=== PATIENT | male | born 1995 | race Caucasian/White ===

== ENCOUNTER 2020-09-17 12:43 | Emergency (ER) | payer MEDICAID, SELFPAY ==
[2020-09-17 13:05] VITALS: BP 123/85; PULSE 85; RESP 21; TEMP 36.9; O2SAT 98; BMI 23.2
--- NOTE | 2020-09-17 13:16 | HMH.EDUTC ---
[facility] [place] Disposition Clinical Impression: Bronchitis Pharyngitis Qualifiers: Pharyngitis/tonsillitis etiology: unspecified etiology Qualified Code(s): J02.9 - Acute pharyngitis, unspecified Disposition: Home, Self-Care Condition on Discharge: Good Instructions: Sore Throat, DI for Pharyngitis/Tonsillopharyngitis -- Adult, Preventing the Spread of Coronavirus Discharge Instructions Additional Instructions: Drink plenty of fluids. Take tylenol for pain or fever. Take the medications as directed. Follow up with your regular doctor. GO TO THE ER FOR ANY WORSENING SYMPTOMS Prescriptions: Brompheniramine/Pseudoephed/Dm [Bromfed Dm Cough Syrup] 5 ml PO Q6HP PRN #240 syrup PRN Reason: Cough Transmission Status: Received by [facility] #[id number] Azithromycin [Z-Dg 250mg Tab*] 250 mg PO UD DOSE PK #6 tab Transmission Status: Received by [facility] #[id number] Referrals: Aliza Chong PA [Primary Care Provider] - Time of Disposition: 13:24 Medical Decision Making - Medical Records Medical records reviewed: No: I reviewed the patient's medical records. - Oscar Inquiry Pt receiving controlled substance: No Vital Signs: 09/17/20 13:05 09/17/20 13:32 Temperature 98.4 F 98.4 F Temperature Source Oral Oral Pulse Rate 85 Pulse Rate [Radial] 85 Respiratory Rate 21 21 Blood Pressure 123/85 Blood Pressure [Right Arm] 123/85 Blood Pressure Mean [Right Arm] 97 Blood Pressure Source Automatic Cuff Blood Pressure Source [Right Arm] Automatic Cuff Blood Pressure Position Sitting Blood Pressure Position [Right Arm] Sitting 02 Sat by Pulse Oximetry 98 Oxygen Delivery Method Room Air Room Air - Lab Data Lab results reviewed: Yes: I reviewed the patient's lab results. Lab Results 09/17/20 12:57: Strep Scn Rapid Clinic Negative Orders (Tests/Meds): ORDERS Category Date Time Status Covid-19 Nasal PCR Sendout [facility] Stat Lab 09/17/20 13:18 Received Strep Screen Confirmation Stat Micro 09/17/20 12:57 Received [facility] [place] HPI - General Stated complaint: cough Time Seen by Provider: 09/17/20 13:16 Mode of Arrival: Ambulatory Source of Information: Patient Limitations: No Limitations Description of Symptoms (Recalled from Triage Doc. by RN): cough sore throat x 2 days HEENT Symptoms (Recalled from RN notes): Yes Resp Symptoms (Recalled from RN notes): No Skin Symptoms (Recalled from RN notes): No MS Symptoms (Recalled from RN notes): No Functional Status (Recalled from RN notes): wnl - History of Present Illness Provider Complaint: He states that for the past 2 days he has had a cough, nasal congestion, and feeling bad. He denies fever or chills. He denies any known exposure to covid. - Related Data Previous Rx's Medication Instructions Recorded Azithromycin [Z-Dg 250mg Tab*] 250 mg PO UD DOSE PK #6 tab 10/08/19 Brompheniramine/Pseudoephed/Dm 5 ml PO Q6HP PRN #240 syrup 10/08/19 [Bromfed Dm Cough Syrup] Ondansetron [Zofran 4mg ODT] 4 mg PO Q8HP PRN #20 tab.rapdis 10/08/19 predniSONE [Deltasone 10mg tablet] 10 mg PO BID 3 Days #6 tab 10/08/19 Azithromycin [Z-Dg 250mg Tab*] 250 mg PO UD DOSE PK #6 tab 09/17/20 Brompheniramine/Pseudoephed/Dm 5 ml PO Q6HP PRN #240 syrup 09/17/20 [Bromfed Dm Cough Syrup] Allergies Allergy/AdvReac Type Severity Reaction Status Date / Time No Known Allergies Allergy Verified 10/08/19 10:29 - Worker's Comp Is this a Worker's Comp case?: No [facility] History - Hepatitis A Screen Drug use history?: No High risk sexual behaviors?: No History of sexually transmitted infection?: No Currently employed?: No Childcare worker?: No Do you have indoor plumbing?: Yes Do you have electricity?: Yes Attestation statement:: This patient has been screened for Hepatitis A risk factors. I have reviewed the patient's past medical history: Yes - Social History Smoking Status: Current every day smoker Tobacco Type: cigarettes # Pa
[2020-09-17 13:19] LABS: UTC Strep Screen (Rapid) Negative (Negative)
[2020-09-17 13:32] VITALS: BP 123/85; PULSE 85; RESP 21; TEMP 36.9; O2SAT 98
[2020-09-18 17:29] LABS: Covid-19 Nasal PCR Sendout Lex Not Detected
== END 2020-09-17 13:33 | disposition home or self-care (01) ==
PROVIDERS: Emergency Provider Nurse Practitioner Family; PCP Nurse Practitioner Family
DX: J40 Bronchitis, not specified as acute or chronic (principal)
CPT/HCPCS: 87880; 99202; U0004

== ENCOUNTER 2023-02-19 13:05 | Emergency (ER) | payer MEDICAID, SELFPAY ==
[2023-02-19 13:10] VITALS: BP 138/79; PULSE 107; RESP 22; TEMP 36.8; O2SAT 99; BMI 19.1
[2023-02-19 13:31] VITALS: BP 138/79; PULSE 107; RESP 22; TEMP 36.8; O2SAT 99
[2023-02-19 13:31] LABS: UTC Influenza A Antigen Positive (Negative); UTC Influenza B Antigen Negative (Negative)
--- NOTE | 2023-02-19 13:50 | EXP.UTC ---
Discharge Plan Disposition Patient Disposition: Home, Self-Care Condition: Good Prescriptions Prescriptions: New oseltamivir [Tamiflu] 75 mg capsule 75 mg PO Q12H 5 Days Qty: 10 0RF Referrals Follow up/Referrals: Provider,Referral, MD [Primary Care Provider] - See instructions Clinical Impressions Clinical Impression: Influenza A Stand Alone Forms Stand Alone Forms: Work/School Release Instructions Patient Instructions: DI for Influenza -- Adult Discharge ED Provider: Ryanne Caballero [facility] General Stated complaint: Bodyaches,cough,fever Mode of Arrival: Ambulatory Source of Information: Patient Limitations: No Limitations Time Seen by Provider: 02/19/23 13:22 Description of Symptoms (Recalled from Triage Doc. by RN): PATIENT C/O RUNNY NOSE, COUGH, HEADACHE, FEVER, FATIGUE AND BODY ACHES X 2 DAYS. RECENTLY EXPOSED TO FLU HEENT Symptoms (Recalled from RN notes): Yes Resp Symptoms (Recalled from RN notes): Yes Skin Symptoms (Recalled from RN notes): No MS Symptoms (Recalled from RN notes): No Functional Status (Recalled from RN notes): WNL History of Present Illness Provider Complaint: Pt reports that he spent the night at his brother's home and his niece had flu and strep. He states that for the past 2 days he has had body aches, cough, sore throat, runny nose, and fever. He has taken Tylenol for his symptoms. Related Data Previous Rx's Medication Instructions Recorded oseltamivir 75 mg capsule (Tamiflu) 75 mg PO Q12H 5 days #10 caps 02/19/23 Allergies Allergy/AdvReac Type Severity Reaction Status Date / Time No Known Allergies Allergy Verified 10/08/19 10:29 Worker's Comp Is this a Worker's Comp case?: No [facility] Disclaimer: The information contained in this section may have been updated after the patient was seen, as this information can be updated by other users. Social History Smoking Status: Current every day smoker tobacco type: cigarettes packs per day: 1 second hand exposure: Yes alcohol intake: never current occupational status: employed Travel in the last 8 weeks: None ROS Obtained: Yes All systems reviewed & no additional complaints except as documented Constitutional Constitutional: Reports system reviewed and no additional complaints, except as documented, Reports body ache, Reports fever(s), Reports headache(s) and Reports malaise Eyes Eyes: Reports system reviewed and no additional complaints, except as documented ENT Ears, Nose, Mouth, and Throat: Reports system reviewed and no additional complaints, except as documented, Reports headache(s), Reports nasal congestion, Reports nasal discharge, Reports odynophagia and Reports sore throat Cardiovascular Cardiovascular: Reports system reviewed and no additional complaints, except as documented Respiratory Respiratory: Reports system reviewed and no additional complaints, except as documented, Reports cough and Reports non-productive cough Gastrointestinal Gastrointestingal: Reports system reviewed and no additional complaints, except as documented and odynophagia Genitourinary Male Genitourinary: Reports system reviewed and no additional complaints, except as documented Musculoskeletal Musculoskeletal: Reports system reviewed and no additional complaints, except as documented Integumentary/Breasts Skin/Breast: Reports system reviewed and no additional complaints, except as documented Neurologic Neurologic: Reports system reviewed and no additional complaints, except as documented and Reports headache(s) Endocrine Endocrine: Reports system reviewed and no additional complaints, except as documented Hematologic/Lymphatic Henatologic/Lymphatic: Reports system reviewed and no additional complaints, except as documented Allergic/Immunologic Allergic/Immunologic: Reports system reviewed and no additional complaints, except as documented Physical Exam General General appearance: alert and in no apparent distress
[2023-02-19 13:56] LABS: UTC Strep Screen (Rapid) Negative (Negative)
== END 2023-02-19 14:04 | disposition home or self-care (01) ==
PROVIDERS: Emergency Provider Nurse Practitioner Family
DX: J10.1 Influenza due to other identified influenza virus with other respiratory manifestations (principal); R05.9 Cough, unspecified; F17.210 Nicotine dependence, cigarettes, uncomplicated
CPT/HCPCS: 87804; 87880; 99204; 99212; G0463

== ENCOUNTER 2023-08-30 15:04 | Emergency (ER) | payer MEDICAID, SELFPAY ==
[2023-08-30 15:05] VITALS: BP 111/79; PULSE 82; RESP 18; TEMP 37.2; O2SAT 98; BMI 22.4
--- NOTE | 2023-08-30 15:35 | US_ITS ---
FINAL REPORT CLINICAL HISTORY: RUQ pain and vomiting FINDINGS: RIGHT UPPER QUADRANT ULTRASOUND Sonographic images of the right upper quadrant were obtained. The liver has an unremarkable appearance. There is borderline gallbladder wall thickening measuring 3 mm. No gallstones are identified. The common duct measures 2 mm. There are probable small right renal stones. IMPRESSION: Probable small right renal stones. Borderline gallbladder wall thickening. Reviewed, Interpreted and Dictated by Norberto Juarez III, MD Transcribed by Rosa Velasquez Authenticated and [facility]
--- NOTE | 2023-08-30 15:38 | HMH.EDGENADL ---
Discharge Plan Disposition Patient Disposition: Home, Self-Care Chief Complaint: Abdominal Pain Prescriptions Prescriptions: No Action oseltamivir [Tamiflu] 75 mg capsule 75 mg PO Q12H 5 Days Qty: 10 0RF Referrals Follow up/Referrals: Provider,Referral, [Primary Care Provider] - See instructions Gregorio Bass DO [Staff Physician] - See instructions Activity Restrictions/Add. Instructions Additional Instructions/Restrictions: Call your family doctor to establish care for this visit to the emergency department and schedule follow-up within 48 hours to ensure improvement. If you have any worsening of your condition or any other concerning signs or symptoms, return to the emergency department or your primary care doctor for further evaluation. Talk to family doctor about having labs redrawn to check your white blood cell count. Clinical Impressions Clinical Impression: Abdominal pain Instructions Patient Instructions: DI for Acute Abdominal Pain Discharge ED Provider: Jan Nj General Adult HPI General Chief complaint: Abdominal Pain Stated complaint: abd pain Time Seen by Provider: 08/30/23 15:05 Mode of Arrival: Ambulatory Source of Information: Patient Limitations: No Limitations Description of Symptoms (Recalled from ER Triage Doc. by RN): Patient reports right lower quadrant pain and vomiting since Tuesday. States he was seen at [facility] and they only tested him for covid and flu. States that it's not getttiing any better and seeems to be getting worse. History of Present Illness HPI narrative: 28-year-old male with no relevant medical history presenting with vomiting. Patient states has been vomiting on and off for about 3 days. Since that time, he has continued to vomit even in the absence of food intake. Has been able to tolerate small amounts of food and water, but has vomited up frequently. Patient went to an outside ED just a couple days ago and was swabbed for COVID and flu, those were negative. Patient was sent home. Patient is continued to vomit since that time, has abdominal pain. Abdominal pain is right upper quadrant, does not radiate, constant, but intermittently worsens. No fevers or chills, diarrhea, hematemesis, or any other concerns. No history of abdominal surgeries. Related Data Previous Rx's Medication Instructions Recorded oseltamivir 75 mg capsule (Tamiflu) 75 mg PO Q12H 5 days #10 caps 02/19/23 Allergies Allergy/AdvReac Type Severity Reaction Status Date / Time No Known Allergies Allergy Verified 10/08/19 10:29 [facility] Disclaimer: The information contained in this section may have been updated after the patient was seen, as this information can be updated by other users. Social History Smoking Status: Current every day smoker tobacco type: cigarettes packs per day: 1 second hand exposure: Yes alcohol intake: never current occupational status: employed Travel in the last 8 weeks: None ROS Obtained: Yes All systems reviewed & no additional complaints except as documented Physical Exam General General appearance: alert and in no apparent distress Head Head exam: atraumatic and normocephalic Eye Eye exam: Present normal appearance, PERRL and EOMI ENT ENT exam: Present mucous membranes moist Neck Neck exam: Present normal inspection, full ROM and trachea midline Respiratory Respiratory exam: Present normal lung sounds bilaterally; Absent respiratory distress, wheezes, stridor, accessory muscle use or prolonged expiratory phase Cardiovascular Cardiovascular exam: Present regular rate and normal rhythm Abdominal Exam Abdominal exam: Present soft, tenderness and Bender's sign; Absent distention, guarding, rebound, rigidity, normal bowel sounds, Rovsing's sign or tenderness at McBurney's Point Abdominal tenderness: Present RUQ and moderate Extremities Exam Extremities exam: Absent edema Neurological Exam Neurological exam: P
[2023-08-30 15:45] LABS: Basophils % 1.2 % (0.1-2.0); Eosinophils # 0.1 K/mm3 (0.0-0.4); Eosinophils % 4.2 % (0.1-12.0); Hematocrit 42.7 % (42.0-52.0); Hemoglobin 14.7 g/dL (14.1-18.0); Lymphocytes # 1.3 K/mm3 (0.7-4.5); Lymphocytes % 37.7 % (10-50); Mean Corpuscular HGB Conc 34.5 g/dL (31.8-35.4); Mean Corpuscular Hemoglobin 32.9 pg (27.0-31.2); Mean Corpuscular Volume 95.3 fl (80-94); Mean Platelet Volume 9.3 fl (7.4-10.4); Monocytes # 0.4 K/mm3 (0.1-1.0); Monocytes % 11.5 % (1.7-9.3); Neutrophils # 1.5 K/mm3 (1.8-7.8); Neutrophils % 45.3 % (37.0-80.0); Platelet Count 147 K/mm3 (142-424); Red Blood Count 4.48 M/mm3 (4.60-6.20); Red Cell Distribution Width 13.4 % (11.5-17.5); White Blood Count 3.4 K/mm3 (4.8-10.8)
[2023-08-30 15:49] LABS: Chloride 105 mmol/L (98-107); Sodium 141 mmol/L (136-145)
[2023-08-30 15:51] LABS: Blood Urea Nitrogen 10 mg/dl (9-20); Creatinine Clearance Estimated 127 mL/min (50-200); Estimated Glomerular Filt Rate 99 ml/min (>60); GFR (African American) 120 ML/MIN (>60)
[2023-08-30 15:52] LABS: Alanine Aminotransferase 20 U/L (12-78); Albumin Level 4.1 g/dl (3.5-5.0); Albumin/Globulin Ratio 1.6 (1.1-1.8); Alkaline Phosphatase 42 U/L (38-126); Aspartate Amino Transferase 35 U/L (17-59); Calcium 8.2 mg/dl (8.4-10.2); Carbon Dioxide 31 mmol/L (22.0-30.0); Globulin 2.5 g/dL (1.3-3.2); Glucose 88 mg/dl (74-100); Lipase 98 U/L (23-300); Total Protein,Serum 6.6 g/dl (6.3-8.2)
[2023-08-30 15:53] LABS: Bilirubin,Total < 0.1 mg/dl (0.2-1.3)
[2023-08-30 17:19] LABS: Lactic Acid 0.5 mmol/L (0.7-2.1)
[2023-08-30 17:29] VITALS: BP 126/78; PULSE 64; RESP 18; TEMP 36.8; O2SAT 99
== END 2023-08-30 17:30 | disposition home or self-care (01) ==
PROVIDERS: Emergency Provider Emergency Medicine
DX: R10.11 Right upper quadrant pain (principal); R11.10 Vomiting, unspecified; F17.210 Nicotine dependence, cigarettes, uncomplicated
CPT/HCPCS: 76705; 80053; 83605; 83690; 85025; 96361; 96374; 96375; 99284; J0131; J2405

== ENCOUNTER 2023-12-17 11:39 | Emergency (ER) | payer MEDICAID, SELFPAY ==
[2023-12-17 11:49] VITALS: BP 0/0; PULSE 0; RESP 0; TEMP -17.7; TEMP 0
== END 2023-12-17 11:50 | disposition left against medical advice (07) ==
LOC: UTC 11:41
PROVIDERS: Emergency Provider Nurse Practitioner Family
DX: Z53.21 Procedure and treatment not carried out due to patient leaving prior to being seen by health care provider (principal)